=== PATIENT | female | born 1995 | race American Indian/Alaskan Native ===

== ENCOUNTER 2017-07-13 09:52 | Inpatient (IN) | payer MEDICAID ==
[2017-07-13 11:25] VITALS: BMI 24.0
[2017-07-13] MEDS: Lactated Ringer's 1,000 ML IV SCH ×2 (11:30→12:30)
[2017-07-13] MEDS ORDERED: Lactated Ringer's 1,000 ML IV SCH (11:45)
[2017-07-13] MEDS ORDERED: Oxytocin 30 UNITS in Sodium Chloride 0.9% 500 ML IM ONE (12:00)
[2017-07-13 12:10] LABS: BASO % 0.4 % (0.0-2.0); EOS % 0.1 % (0.0-4.0); HEMOGLOBIN 9.6 g/dL (12.0-16.0); LYMPH # 1.3 K/uL (1.0-4.3); LYMPH % 15.5 % (20.0-40.0); MEAN CELL VOLUME 61.5 fl (81.0-99.0); MEAN CORPUSCULAR HEMOGLOBIN 18.3 pg (27.0-31.0); MEAN CORPUSCULAR HGB CONC 29.8 g/dL (33.0-37.0); MEAN PLATELET VOLUME 8.9 fl (7.2-11.7); MONO # 0.6 K/uL (0.0-0.8); MONO % 6.7 % (0.0-10.0); NEUT # 6.6 K/uL (1.8-7.0); NEUT % 77.3 % (50.0-75.0); NRBC % 0.3 % (0.0-0.0); RBC 5.21 Mil/uL (3.80-5.20); RED CELL DISTRIBUTION WIDTH 24.6 % (11.5-14.5); WHITE BLOOD COUNT 8.5 K/uL (4.8-10.8)
[2017-07-13] MEDS ORDERED: Fentanyl/Bupivacaine HCl 250 ML EPI ONE (12:10)
[2017-07-13] MEDS ORDERED: Bupivacaine HCl 0.25% PF (10 ml) Inj ONE (12:33)
[2017-07-13] MEDS ORDERED: Oxycodone/Acetaminophen 5/325 mg Tab PO PRN ×2 (18:20)
--- NOTE | 2017-07-13 18:35 | OBADHP ---
Datetime: 07/13/2017 18:30 Admit Comment, IP Provider: Patient is 1 para 0 estimated gestational age 39 weeks patient p resents to labor and delivery complaining of uterine contractions of moderate to severe intensity asif es several hours duration. Patient reports good movement no leakage of fluid Past medical history none Past surgical history none No known drug allergies Social history unremarkable Review of systems patient denies headache chest pain shortness of breath palpitations nausea vomit ing diarrhea heat or cold intolerance she is to present spell any musculoskeletal or neurological com plaints Intrauterine at 39 weeks Active labor, admitted, adequate pelvis, vertex presentation, estimated weight 7 pounds Pelvic Type - PN: Adequate Extremities - PN: Normal Abdomen - PN: Normal Back - PN: Normal Breast - PN: Not Done Lungs - PN: Normal Heart - PN: Normal Thyroid - PN: Normal Neurologic - PN: Normal HEENT - PN: Normal General - PN: Normal FHR - Baseline A Provider: 145 Gestation - Est Wks by US: 39.0 Vital Signs Provider: Reviewed IP Chief Complaint: Uterine contractions NICHD Variability Prov Fetus A: Moderate 6-25bpm NICHD Accel Fetus A IP Provider: [id number] FHR Category Provider Fetus A: Category I NICHD Decel Fetus A IP Provider: None Dilatation, Provider: 4 Effacement, Provider: 100 Station, Provider: 0 Genitourinary Exam: Normal DTRs - PN: Normal EGA AdmitDate IP: 39.0 IP Adm Impression: Term, intrauterine ; Active labor IP Admit Plan: Admit to unit
--- NOTE | 2017-07-13 18:35 | OBDS ---
MATERNAL INFORMATION Provider Comments: Delivered live baby boy at 6:08 PM the baby was bulb suctioned on the perineum th en transferred to the maternal chest. The cord was clamped and cut and 3 vessels noted. Blood was obt ained and sent to the lab. Placenta was delivered at 6:10 PM intact, the estimated blood loss was 100 mL. There was a first-degree laceration was repaired with 2-0 repeat. The mother tolerated the proce dure well and the baby went to the well baby nursery with Apgars of 9 and 9 LABOR SUMMARY EDC: 07/20/2017 00:00 No. Babies in Womb: 1 LABOR INFORMATION Onset of Labor: 07/13/2017 05:00 MEMBRANES Membranes Rupture Method: Artificial Amniotic Fluid Color: Light Meconium Amniotic Fluid Amount: Moderate
[2017-07-13] MEDS ORDERED: Oxytocin 30 UNITS in Sodium Chloride 0.9% 500 ML IV SCH (19:15)
[2017-07-14 07:23] LABS: MEAN CELL VOLUME 62.7 fl (81.0-99.0); MEAN CORPUSCULAR HEMOGLOBIN 18.6 pg (27.0-31.0); MEAN CORPUSCULAR HGB CONC 29.7 g/dL (33.0-37.0); RBC 3.85 Mil/uL (3.80-5.20); RED CELL DISTRIBUTION WIDTH 24.3 % (11.5-14.5); WHITE BLOOD COUNT 12.1 K/uL (4.8-10.8)
[2017-07-14 07:42] LABS: HEMOGLOBIN 7.2 g/dL (12.0-16.0)
[2017-07-14] MEDS ORDERED: Oxycodone/Acetaminophen 5/325 mg Tab PO PRN ×2 (09:32)
--- NOTE | 2017-07-15 08:21 | OBPPN ---
Datetime: 07/15/2017 08:16 PP Pain Prov: Within normal limits PP Abdomen/Uterus Prov: Normal PP Lochia Prov: Normal PP Extremities Prov: Normal PP Progress Prov: Not Applicable PP Impression Prov: Normal progression PP Plan Prov: Discharge PP Progress Note Prov: PPD 2 s/p , doing well, bottle feeding Discharge home today Vital Signs Provider PP: Reviewed Datetime: 07/14/2017 08:50 PP Nausea Prov: Denies PP Flatus Prov: Yes PP BM Prov: No PP Breasts Prov: Not Done PP Heart Prov: Normal PP Lungs Prov: Normal PP Vulva/Perineum Prov: Not Done PP CVA Tenderness Prov: Not Done PP C/S Incision Prov: Not Applicable
[2017-07-15 19:50] VITALS: BP 124/74; PULSE 79; RESP 20; TEMP 98; O2SAT 98
== END 2017-07-15 15:30 | disposition home or self-care (01) | DRG 373 ==
LOC: H.EROB2 09:52 → H.EROB 10:19 → H.EROB2 11:30 → H.L&D 11:31 → H.OB/GYN 23:00
PROVIDERS: ADMIT Obstetrics & Gynecology Gynecology; ATTEND Obstetrics & Gynecology Gynecology
PROC: 0HQ9XZZ Repair Perineum Skin, External Approach (ICD-10-PCS; principal; 2017-07-13)
PROC: 10E0XZZ Delivery of Products of Conception, External Approach (ICD-10-PCS; 2017-07-13)
PROC: 4A1HXCZ Monitoring of Products of Conception, Cardiac Rate, External Approach (ICD-10-PCS; 2017-07-13)
DX: O70.0 First degree perineal laceration during delivery (principal); Z37.0 Single live birth; Z3A.39 39 weeks gestation of pregnancy